=== PATIENT | male | born 1990 | race African-American/Black ===

== ENCOUNTER 2018-02-26 01:01 | Emergency (ER) | payer OTHER ==
[2018-02-26] MEDS ORDERED: NS 0.9% 1000 ML* 2,000 ML IV ONE (01:05)
[2018-02-26] MEDS ORDERED: Dexamethasone IV* 4 MG/ML 1 ML (4 MG) IV SLOW PU ONE (01:05)
--- NOTE | 2018-02-26 01:09 | ED ---
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 The patient rates the pain 0/10 in severity. Symptoms aggravated by nothing. Symptoms alleviated by Benadryl and Epinephrine. Patient reports pruritic feeling, swollen throat, and hives. Patient denies dyspnea. Pt denies having previous reactions to fish. 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 - History of Current Complaint Hx Obtained From: Patient Onset/Duration: Sudden Onset, Started hours ago, Still Present Timing: Constant Location: Diffuse Character: Pruritus, Hives Aggravating Factor(s): Nothing Alleviating Factor(s): Epinephrine, Other - Benadryl Associated Signs And Symptoms: Positive: Other: - Positive pruritic feeling, swollen throat, and hives. Negative dyspnea PMH/Surg Hx/FS Hx/Imm Hx Previously Healthy: Yes Opthamlomology History: Denies: Hx Legally Blind EENT History: Denies: Hx Deafness - Family History Known Family History: Negative: Seizure Disorder - Social History Occupation: Unemployed Lives: Alone Alcohol Use: None Hx Substance Use: No Substance Use Type: Reports: None Hx Tobacco Use: No Smoking Status (MU): Unknown if Ever Smoked Review of Systems Positive: Other - Positive swollen throat Positive: Other - Negative dyspnea Positive: Other - Positive hives and pruritis All Other Systems Reviewed And Are Negative: Yes Physical Exam - Summary Physical Exam Summary: Appearance: Well-appearing, Well-nourished, lying in bed comfortably Skin: Warm, dry, no obvious rash Eyes: sclera anicteric, no conjunctival pallor ENT: mucous membranes moist, pharynx appears normal, slight uvular edema Neck: Supple, nontender Respiratory: Clear to auscultation, no signs of respiratory distress Cardiovascular: Normal S1, S2. No murmurs. Normal distal pulses in tibial and radial bilaterally. Abdomen: Soft, nontender, normal active bowel sounds present Musculoskeletal: Normal, Strength/ROM Intact Neurological: A&Ox3, awake and alert, mentation is normal, speech is fluent and appropriate Psychiatric: affect is normal, does not appear anxious or depressed Triage Information Reviewed: Yes Vital Signs Reviewed: Yes Allergic Reaction Course/Dx - Course Course Of Treatment: This is a 28-year-old man who suffered an anaphylactic reaction apparently to finish while in [facility]. He was treated pre-hospital quite appropriately with Benadryl, epinephrine, and IV fluids. Per EMS he was found to be somewhat lethargic and hypotensive initially but on my arrival to the room he was awake and alert with good blood pressure. He has cleared his urticaria. He has been quite stable over the past couple of hours at this point I believe he is stable for discharge back to [facility]. I will put him on a short course of prednisone as well as Benadryl. - Diagnoses Provider Diagnoses: Anaphylaxis - Critical Care Time Critical Care Time: 30-74 min - 1-year-old man with anaphylactic reaction involving skin, vascular cruz, requiring frequent reassessment and IV medication. Discharge - Sign-Out/Discharge Documenting (check all that apply): Patient Departure - Discharge Plan Condition: Improved Disposition: HOME Prescriptions: diPHENhydraMINE PO* [Benadryl PO 50 MG CAP*] 50 mg PO Q6H PRN #20 cap PRN Reason: Allergy Symptoms predniSONE [Prednisone 20 MG TAB] 60 mg PO DAILY 7 Days #24 tablet Patient Education Materials: Anaphylaxis (ED), Food Allergy (ED) Additional Instructions: Avoid fish products until you can be definitively assessed by a clinical trials specialist. - Billing Disposition and Condition Condition: IMPROVED Disposition: Home - Attestation Statements Document Initiated by Lee: Yes Documenting Scribe: Araceli Knox Provider For Whom Lee is Documenting (Include Credential): Martir Marina MD Scribe Attestation: Araceli Reyes, scribed for Martir Marina MD on 02/26/18 at 0344. Scribe Documentation Reviewed: Yes Provider Attestation: The documentation as recorded by the Araceli etienne accurately reflects the service I personally performed and the decisions made by me, Martir Marina MD
== END 2018-02-26 04:31 | disposition home or self-care (01) ==
LOC: ED 01:01
DX: T78.03XA Anaphylactic reaction due to other fish, initial encounter (principal); L50.9 Urticaria, unspecified; R22.1 Localized swelling, mass and lump, neck
CPT/HCPCS: 96374; 99282; J1100